=== PATIENT | male | born 1990 | race Caucasian/White ===

== ENCOUNTER 2019-03-02 03:32 | Inpatient (IN) | payer MEDICAID ==
[~2019-03-02] VITALS: Ht 180.3 cm; Wt 102.9 kg
[2019-03-02] MEDS ORDERED: normal saline 1000ML IV soln IVB ONE (04:05)
[2019-03-02] MEDS ORDERED: morphine 4 MG/ML inj SYRINge IV PRN (04:05)
[2019-03-02] MEDS ORDERED: ondansetron/PF 4mg/2ml inj IV ONE (04:05)
[2019-03-02 04:30] LABS: BASOPHILS # (AUTO) 0.1 X10'3 (0-0.2); BASOPHILS % (AUTO) 0.9 % (0-1); EOSINOPHILS # (AUTO) 0.1 X10'3 (0-0.9); HEMATOCRIT 43.7 % (42.0-52.0); HEMOGLOBIN 14.5 g/dl (14.0-17.9); LYMPHOCYTES # (AUTO) 1.5 X10'3 (1.1-4.8); LYMPHOCYTES % (AUTO) 17.2 % (21-51); MEAN CORPUSCULAR HEMOGLOBIN 29.6 PG (27.0-31.0); MEAN CORPUSCULAR HGB CONC 33.1 g/dL (33.0-36.5); MEAN CORPUSCULAR VOLUME 89.7 FL (78-98); MEAN PLATELET VOLUME 10.2 FL (7.4-10.4); MONOCYTES # (AUTO) 0.8 X10'3 (0-0.9); MONOCYTES % (AUTO) 9.3 % (2-12); NEUTROPHILS # (AUTO) 6.2 X10'3 (1.8-7.7); NEUTROPHILS % (AUTO) 71.6 % (42-75); PLATELET COUNT 260 X10'3 (140-440); RED BLOOD COUNT 4.88 X10'6 (4.70-6.10); WHITE BLOOD COUNT 8.7 X10'3 (4.5-11.0)
[2019-03-02 04:32] LABS: ALANINE AMINOTRANSFERASE 123 U/L (12-78); ALBUMIN 3.1 G/DL (3.4-5.0); ALKALINE PHOSPHATASE 101 IU/L (46-116); ANION GAP 9 (8-16); ASPARTATE AMINO TRANSFERASE 56 U/L (10-37); BILIRUBIN,TOTAL 0.7 MG/DL (0.1-1.0); BLOOD UREA NITROGEN 31 MG/DL (7-18); BUN/CREATININE RATIO 19.7 (5.4-32.0); CALCIUM 8.4 MG/DL (8.5-10.1); CHLORIDE 99 MMOL/L (99-107); CREATININE 1.57 MG/DL (0.60-1.10); GLUCOSE 118 MG/DL (70-104); LIPASE 173 U/L (73-393); POTASSIUM 4.5 MMOL/L (3.5-5.1); SODIUM 133 MMOL/L (135-145); TOTAL PROTEIN 6.3 G/DL (6.4-8.2); eGFR 52 ML/MIN
[2019-03-02 04:49] LABS: CLARITY,URINE CLEAR (Clear); COLOR,URINE YELLOW (Yellow); GLUCOSE, URINE NEGATIVE (Neg); KETONES,URINE NEGATIVE (Neg); LEUKOCYTE ESTERASE ,URINE NEGATIVE (Neg); NITRITES, URINE NEGATIVE (Neg); OCCULT BLOOD,URINE NEGATIVE (Neg); PH,URINE 5.5 (4.8-8.0); PROTEIN,URINE NEGATIVE (Neg)
[2019-03-02] MEDS ORDERED: LISI10TA4 PO (04:49)
[2019-03-02] MEDS ORDERED: FURO40TA4 PO (04:49)
[2019-03-02] MEDS ORDERED: ASPI-1265 PO (04:49)
[2019-03-02 04:50] LABS: UA COLLECTION TYPE URINAL
[2019-03-02 05:05] LABS: TROPONIN I 0.08 NG/ML (0.0-0.05)
[2019-03-02] MEDS ORDERED: furosemide 10 MG/1 ML 10ml inj IV ONE (05:45)
[2019-03-02] MEDS ORDERED: aspirin 81mg tab.chew PO ONE (06:25)
[2019-03-02 06:29] LABS: URINE AMPHETAMINE SCREEN NEGATIVE (Neg); URINE BARBITUATE SCREEN NEGATIVE (Neg); URINE BENZODIAZEPINES SCREEN NEGATIVE (Neg); URINE CANNABINOID SCREEN NEGATIVE (Neg); URINE COCAINE SCREEN NEGATIVE (Neg); URINE METHADONE SCREEN NEGATIVE (Neg); URINE OPIATE SCREEN NEGATIVE (Neg); URINE PHENCYCLIDINE SCREEN NEGATIVE (Neg)
--- NOTE | 2019-03-02 08:30 | NUR ---
Patient in room U 3024. I have received report from Richelle RICHEY and had the opportunity to ask questions and assume patient care. Awaiting patient arrival to PCU 3024A.
--- NOTE | 2019-03-02 08:40 | NUR ---
Patient arrived to PCU 3024A. Ambulated to hospital bed with no assistance. Patient oriented to room and to call light. Telemetry monitoring initiated. Vital signs: T 97.5, HR 100, RR: 18, O2 99% on room air, blood pressure 109/66. Pain 3/10. All immediate needs met
[2019-03-02 11:00] VITALS: BP 104/67
[2019-03-02] MEDS ORDERED: morphine 2 MG/ML inj. syringe IV PRN ×2 (11:00)
[2019-03-02] MEDS ORDERED: acetaminophen 325mg tablet PO PRN (11:00)
[2019-03-02] MEDS ORDERED: magnesium Cl slow-release 64mg tablet PO PRN (11:00)
[2019-03-02] MEDS ORDERED: magnesium 4gm in 100ml NS 100 ML IV PRN (11:00)
[2019-03-02] MEDS ORDERED: potassium Cl 20 mEq SR tablet PO PRN ×2 (11:00)
[2019-03-02] MEDS ORDERED: magnesium hydroxide 30ml (MOM) UD suspension PO PRN (11:00)
[2019-03-02] MEDS ORDERED: ondansetron/PF 4mg/2ml inj IV PRN (11:00)
[2019-03-02] MEDS ORDERED: mag hydrox/Alum hydrox/simeth 30ml oral suspension PO PRN (11:00)
[2019-03-02] MEDS ORDERED: HYDROcodone/acetaminophen 5mg/325mg tablet PO PRN (11:00)
[2019-03-02] MEDS ORDERED: magnesium 2GM in 50ml NS 50 ML IV PRN (11:00)
[2019-03-02] MEDS ORDERED: potassium CL 10mEq/100ml bag 100 ML IV PRN ×2 (11:00)
[2019-03-02] MEDS: lisinopril 10 MG tablet PO SCH (11:41)
[2019-03-02 15:00] VITALS: BP 145/70
--- NOTE | 2019-03-02 17:19 | NUR ---
[place] documentation: I have reviewed and agree with all interventions, assessments performed and documented by ROSSI Ruiz. [place] Medication Administration: For this medication-pass time frame, all medication were reviewed, dispensed, administered and documented per hospital policy by Sara RICHEY.
[2019-03-02 18:00] VITALS: BP 109/68
[2019-03-02] MEDS ORDERED: ipratropium/albuterol 3ml nebule NEB PRN (18:10)
[2019-03-02] MEDS: azithromycin/NS 500mg/250ml 250 ML IV ONE ×2 (18:10→19:33)
--- NOTE | 2019-03-02 18:15 | NUR ---
Problems reprioritized. Patient report given, questions answered & plan of care reviewed with ROSSI Rudd. Patient stable at transfer of care.
--- NOTE | 2019-03-02 18:16 | NUR ---
Problems reprioritized. Patient report given, questions answered & plan of care reviewed with Blaire RN. Patient stable at transfer of care.
[2019-03-02] MEDS: budesonide 0.5mg/2ml UD nebule IH SCH (19:12)
[2019-03-02] MEDS: ipratropium/albuterol 3ml nebule NEB SCH (19:12)
[2019-03-02] MEDS: furosemide 40mg/4ml inj IV SCH (19:37)
--- NOTE | 2019-03-02 20:22 | NUR ---
IV AZITHROMYCIN REFUSED. Patient said the antibiotic started to make him feel "sick and nauseous" Patient was educated about the need for the antibiotic to fight the bronchitis. MD notified and said to pass on to morning hospitalist.
[2019-03-02] MEDS ORDERED: Melatonin 3mg tablet PO PRN (20:40)
[2019-03-02 22:00] VITALS: BP 96/62
[2019-03-03 01:07] LABS: ALBUMIN 2.9 G/DL (3.4-5.0); ANION GAP 7 (8-16); BLOOD UREA NITROGEN 32 MG/DL (7-18); BUN/CREATININE RATIO 19.2 (5.4-32.0); CALCIUM 8.4 MG/DL (8.5-10.1); CHLORIDE 99 MMOL/L (99-107); CREATININE 1.67 MG/DL (0.60-1.10); GLUCOSE 119 MG/DL (70-104); MAGNESIUM 1.8 MG/DL (1.5-2.4); POTASSIUM 4.3 MMOL/L (3.5-5.1); SODIUM 130 MMOL/L (135-145); TOTAL CARBON DIOXIDE 23.9 MMOL/L (24-32); TROPONIN I 0.08 NG/ML (0.0-0.05); eGFR 49 ML/MIN
[2019-03-03 02:00] VITALS: BP 115/67
--- NOTE | 2019-03-03 04:01 | NUR ---
Troponin series was cancelled because there was a time fall out. The first one was done 03/02 350 with result of 0.08 and I noticed when I started my NOC shift that there wasn't any other ones although the progress note or H&P said further trops will be ordered for eval. bingo caller MD was called and notified. He said to draw one to see what the result would be. It was 0.08, so he said it's mostly elevated because of the CHF exacebation and no further Troponin draws will be needed.
[2019-03-03 05:42] LABS: BASOPHILS # (AUTO) 0.1 X10'3 (0-0.2); BASOPHILS % (AUTO) 1.2 % (0-1); EOSINOPHILS % (AUTO) 0.4 % (0-6); HEMATOCRIT 42.3 % (42.0-52.0); HEMOGLOBIN 14.4 g/dl (14.0-17.9); LYMPHOCYTES # (AUTO) 1.7 X10'3 (1.1-4.8); LYMPHOCYTES % (AUTO) 20.1 % (21-51); MEAN CORPUSCULAR HEMOGLOBIN 30.2 PG (27.0-31.0); MEAN CORPUSCULAR HGB CONC 34.1 g/dL (33.0-36.5); MEAN CORPUSCULAR VOLUME 88.6 FL (78-98); MEAN PLATELET VOLUME 10.2 FL (7.4-10.4); MONOCYTES # (AUTO) 0.9 X10'3 (0-0.9); MONOCYTES % (AUTO) 10.5 % (2-12); NEUTROPHILS # (AUTO) 5.7 X10'3 (1.8-7.7); NEUTROPHILS % (AUTO) 67.8 % (42-75); PLATELET COUNT 222 X10'3 (140-440); RED BLOOD COUNT 4.77 X10'6 (4.70-6.10); RED CELL DISTRIBUTION WIDTH 14.1 % (11.5-14.5); WHITE BLOOD COUNT 8.5 X10'3 (4.5-11.0)
--- NOTE | 2019-03-03 06:08 | NUR ---
Problems reprioritized. Patient report given, questions answered & plan of care reviewed with Crissy Gerber RN and Goldie Huerta RN.
--- NOTE | 2019-03-03 06:10 | NUR ---
Problems reprioritized. Patient report given, questions answered & plan of care reviewed with Crissy RICHEY and Sara RICHEY.
--- NOTE | 2019-03-03 06:20 | NUR ---
Patient in room PCU 3024. I have received report from Blaire RICHEY and had the opportunity to ask questions and assume patient care. Patient asleep in bed. All immediate needs met.
--- NOTE | 2019-03-03 06:51 | NUR ---
Patient in room PCU 3024. I have received report from ROSSI Rudd and had the opportunity to ask questions and assume patient care. Patient resting comfortably and in no acute distress.
[2019-03-03 07:00] VITALS: BP 109/69
[2019-03-03] MEDS ORDERED: aspirin 81mg tab.chew PO SCH (08:00)
[2019-03-03] MEDS ORDERED: K and/or MAG REPLACEMENT MC SCH (08:00)
[2019-03-03] MEDS ORDERED: azithromycin 250mg tablet PO SCH (08:00)
[2019-03-03] MEDS ORDERED: enoxaparin 40mg/0.4ml syringe SQ SCH (08:00)
[2019-03-03] MEDS: ipratropium/albuterol 3ml nebule NEB SCH (08:33)
[2019-03-03] MEDS: budesonide 0.5mg/2ml UD nebule IH SCH (08:33)
[2019-03-03 09:11] VITALS: BP_SYST 109
[2019-03-03] MEDS: furosemide 40mg/4ml inj IV SCH (09:11)
[2019-03-03] MEDS: lisinopril 10 MG tablet PO SCH (09:11)
[2019-03-03] MEDS ORDERED: ALBU18HF2 IH (10:45)
[2019-03-03] MEDS ORDERED: FLUT1DIS4 INH (10:45)
[2019-03-03] MEDS ORDERED: AZI25OT PO (10:45)
--- NOTE | 2019-03-03 13:10 | NUR ---
Patient stable for discharge per MD orders. All discharge instructions reviewed with patient and questions answered. New prescriptions called into [facility] in [place]. Patient medications retrieved from pharmacy. PIV discontinued. Arm band off. front desk monitor discontinued. Belongings collected and sent with patient. Patient left by private vehicle and was wheeled to the lobby.
== END 2019-03-03 13:14 | disposition home or self-care (01) | DRG 145 ==
LOC: ER 03:32 → ED HOLD 07:47 → PCU 3S 08:41
PROVIDERS: ADMIT Hospitalist; ATTEND Hospitalist
DX: J20.9 Acute bronchitis, unspecified (principal); I24.8 Other forms of acute ischemic heart disease; I42.9 Cardiomyopathy, unspecified; I50.22 Chronic systolic (congestive) heart failure; F17.210 Nicotine dependence, cigarettes, uncomplicated; Z79.899 Other long term (current) drug therapy
CPT/HCPCS: 36415; 71045; 80048; 80053; 80305; 81003; 83690; 83735; 83880; 84484; 85025; 87081; 93005; 94640; 94760; 96361; 96374; 96375; 99285; G0378; J0456; J1650; J1940; J2405; J7626